=== PATIENT | male | born 1970 | race African-American/Black ===

== ENCOUNTER 2018-07-12 08:46 | Emergency (ER) | payer OTHER ==
[2018-07-12 09:02] VITALS: BP 128/85; PULSE 96; TEMP 98.5; BMI 32.1
--- NOTE | 2018-07-12 09:24 | PDOC ---
History of Present Illness - General Chief Complaint: Cold Symptoms Stated Complaint: COLD SYMPTOMS Time Seen by Provider: 07/12/18 09:00 History Source: Patient - History of Present Illness Timing/Duration: reports: other Past History - Past Medical History Allergies/Adverse Reactions: Allergies Allergy/AdvReac Type Severity Reaction Status Date / Time No Known Allergies Allergy Verified 07/12/18 08:50 Home Medications: Ambulatory Orders Metformin HCl [Glucophage] 500 mg PO BID #60 tablet 07/12/18 COPD: No - Immunization History Immunization Up to Date: Yes - Suicide/Smoking/Psychosocial Hx Smoking History: Never smoked Information on smoking cessation initiated: No Hx Alcohol Use: No Drug/Substance Use Hx: No Review of Systems - Review of Systems Constitutional: No: Chills, Fever HEENTM: No: Ear Pain, Throat Pain Respiratory: Yes: Cough. No: Shortness of Breath, Hemoptysis *Physical Exam - Vital Signs Last Vital Signs Temp Pulse Resp BP Pulse Ox 98.5 F 96 H 16 128/85 99 07/12/18 08:49 07/12/18 08:49 07/12/18 08:49 07/12/18 08:49 07/12/18 08:49 - Physical Exam General Appearance: Yes: Appropriately Dressed. No: Apparent Distress HEENT: positive: Normal ENT Inspection, Normal Voice. negative: Scleral Icterus (R), Scleral Icterus (L) Neck: positive: Supple. negative: Lymphadenopathy (R), Lymphadenopathy (L) Respiratory/Chest: positive: Lungs Clear, Normal Breath Sounds. negative: Respiratory Distress Cardiovascular: positive: Regular Rate, S1, S2 Integumentary: positive: Dry, Warm Neurologic: positive: Fully Oriented, Alert, Normal Mood/Affect Medical Decision Making - Medical Decision Making 07/12/18 09:21 47-year-old male, history of NIDDM, here with non-productive cough with pleuritic chest pain, nasal congestion with body aches 3 days. Denies shortness of breath, hemoptysis, fever, chills, sore throat, ear pain, or rash. No known sick contacts or recent travel. Patient also requesting refill of his metformin. Insurance recently reactivated and planning on seeing his PMD in the near future See exam Viral URI Exam unremarkable -dc w/ supportive tx *DC/Admit/Observation/Transfer Diagnosis at time of Disposition: URI (upper respiratory infection) Qualifiers: URI type: unspecified viral URI Qualified Code(s): J06.9 - Acute upper respiratory infection, unspecified - Discharge Dispostion Disposition: HOME Condition at time of disposition: Good - Prescriptions Prescriptions: Metformin HCl [Glucophage] 500 mg PO BID #60 tablet - Referrals - Patient Instructions Printed Discharge Instructions: DI for Viral Upper Respiratory Infection -- Adult Additional Instructions: Resume your metformin and please follow-up with your PMD - Post Discharge Activity Forms/Work/School Notes: Back to Work
--- NOTE | 2018-07-14 15:05 | EKG ---
Test Reason : Blood Pressure : / mmHG Vent. Rate : 089 BPM Atrial Rate : 089 BPM P-R Int : 154 ms QRS Dur : 084 ms QT Int : 352 ms P-R-T Axes : 060 039 022 degrees QTc Int : 428 ms NORMAL SINUS RHYTHM NONSPECIFIC T WAVE ABNORMALITY ABNORMAL ECG NO PREVIOUS ECGS AVAILABLE Confirmed by JERILYN BALTAZAR MD ([id number]) on 07/14/2018 3:05:47 PM Referred By: Confirmed By:JERILYN BALTAZAR MD
== END 2018-07-12 09:39 | disposition home or self-care (01) ==
LOC: JER 08:46 → JERFT 08:46
DX: J06.9 Acute upper respiratory infection, unspecified (principal); B97.89 Other viral agents as the cause of diseases classified elsewhere; E11.9 Type 2 diabetes mellitus without complications; Z79.84 Long term (current) use of oral hypoglycemic drugs
CPT/HCPCS: 93005; 93010; 99281-25

== ENCOUNTER 2018-10-05 09:56 | Emergency (ER) | payer OTHER ==
[2018-10-05 10:03] VITALS: BP 116/73; PULSE 89; TEMP 98.2; BMI 36.5
--- NOTE | 2018-10-05 11:00 | PDOC ---
History of Present Illness - General Chief Complaint: Rash Stated Complaint: LT. FOOT PAIN Time Seen by Provider: 10/05/18 10:37 History Source: Patient Exam Limitations: No Limitations - History of Present Illness Initial Comments: 10/05/18 10:54 48 yo M w/ a PMHx DM comes in c/o L foot itching for the past 1-2 months. Also c /o occasional numbness in his feet. Pt admits to non compliance with his metformin, he does not take it everyday because it gives him diarrhea. No other complaints today. He does not have a PMD, says that he needs one. He denies polyuria, polydipsia, no fever/chills, no abdominal pain, no chest pain, no SOB, no urinary complaints. Denies change in appetite, no recent travel. Past History - Past Medical History Allergies/Adverse Reactions: Allergies Allergy/AdvReac Type Severity Reaction Status Date / Time No Known Allergies Allergy Verified 10/05/18 09:59 Home Medications: Ambulatory Orders Metformin HCl [Glucophage] 500 mg PO BID #60 tablet 07/12/18 Clotrimazole [Clotrimazole AF] 28 gm TP BID 14 Days #1 cream..g. 10/05/18 COPD: No Diabetes: Yes - Surgical History Abdominal Surgery: Yes - Immunization History Immunization Up to Date: Yes - Suicide/Smoking/Psychosocial Hx Smoking History: Never smoked Hx Alcohol Use: No Drug/Substance Use Hx: No Review of Systems - Review of Systems Able to Perform ROS?: Yes Constitutional: No: Chills, Fever, Malaise, Night Sweats HEENTM: No: Eye Pain, Recent change in vision, Throat Pain Respiratory: No: Cough, Shortness of Breath Cardiac (ROS): No: Chest Pain, Palpitations, Chest Tightness ABD/GI: No: Diarrhea, Nausea, Vomiting, Abdominal cramping : No: Dysuria, Hematuria Musculoskeletal: No: Back Pain Integumentary: Yes: Rash Neurological: No: Headache, Numbness, Dizziness Psychiatric: No: Change in Appetite Endocrine: No: Unexplained Weight Loss *Physical Exam - Vital Signs Last Vital Signs Temp Pulse Resp BP Pulse Ox 98.2 F 89 18 116/73 99 10/05/18 10:10/05/18 10:10/05/18 10:10/05/18 10:01 10/05/18 10:01 - Physical Exam General Appearance: Yes: Nourished. No: Apparent Distress HEENT: positive: LV, Normal ENT Inspection, Normal Voice. negative: Pale Conjunctivae, Scleral Icterus (R), Scleral Icterus (L) Neck: positive: Supple. negative: Decreased range of motion, Tender midline Respiratory/Chest: positive: Lungs Clear, Normal Breath Sounds. negative: Respiratory Distress, Accessory Muscle Use Cardiovascular: positive: Regular Rhythm, Regular Rate Extremity: positive: Normal Capillary Refill, Normal Range of Motion, Other ((+) areas of hyperpigmented patches to L foot and interdigital webspaces c/w athlete 's foot, (+)diffuse calluses). negative: Tender, Coldness, Pedal Edema, Swelling Integumentary: positive: Normal Color, Dry, Rash (As described in "extremity" exam.). negative: Jaundice Neurologic: positive: Fully Oriented, Alert, Normal Mood/Affect Medical Decision Making - Medical Decision Making 10/05/18 10:59 48 yo M w/ uncontrolled DM, comes in c/o athlete's foot and calluses. He also c/ o occasional feet numbness which could be from diabetic neuropathy due to uncontrolled DM. Pt just had breakfast, unnecessary to check FS since pt denies any polyuria/polydipsia/polyphagia, denies fever/chills, no abdominal pain, no change in appetite, no systemic symptoms at this time. WIll discharge with a referral to the hotel yardperson and a PMD, will Rx clotrimazole. Pt counseled on imperative need to follow up and change lifestyle and diet Return for worsening/concerning symptoms Pt verbalizes understanding and agrees with plan 10/05/18 11:17 *DC/Admit/Observation/Transfer Diagnosis at time of Disposition: Athlete's foot on left, Callus of foot - Discharge Dispostion Disposition: HOME Condition at time of disposition: Stable - Prescriptions Prescriptions: Clotrimazole [Clotrimazole AF] 28 gm TP BID 14 Days #1 cream..g. - Referrals Referrals: Nayeli Seals DPM [Staff Physician] - Paul Martinez MD [Staff Physician] - - Patient Instructions Printed Discharge Instructions: How to Take Care of Your Feet If You Have Diabetes, Diabetic Neuropathy, DI for Calluses and Corns, DI for Athlete's Foot - Post Discharge Activity Forms/Work/School Notes: Back to Work
== END 2018-10-05 11:16 | disposition home or self-care (01) ==
LOC: JERFT 09:56
DX: B35.3 Tinea pedis (principal); L84 Corns and callosities; E11.65 Type 2 diabetes mellitus with hyperglycemia; Z79.84 Long term (current) use of oral hypoglycemic drugs; Z91.14 Patient's other noncompliance with medication regimen
CPT/HCPCS: 99281-25

== ENCOUNTER 2023-09-07 20:22 | Emergency (ER) | payer OTHER ==
[2023-09-07 20:28] VITALS: BMI 30.4
[2023-09-07] MEDS ORDERED: ALBUTEROL SO4 2.5/IPRATROPIUM 0.5 INH SOL 3 ML VIAL.NEB. NEB ONE (21:32)
[2023-09-07] MEDS ORDERED: ACETAMINOPHEN 500 MG TABLET (FP) ONE (21:32)
[2023-09-07] MEDS: ACETAMINOPHEN 500 MG TABLET (FP) PO ONE (22:02)
[2023-09-07] MEDS: ALBUTEROL SO4 2.5/IPRATROPIUM 0.5 INH SOL 3 ML VIAL.NEB. NEB ONE (22:03)
[2023-09-07] MEDS: SODIUM CHLORIDE 1,000 ML IV STA (22:26)
[2023-09-07 22:30] LABS: BASO % 0.8 % (0-2.0); EOS % 0.7 % (0-4.5); HEMATOCRIT 40.1 % (35.4-49); HEMOGLOBIN 13.6 GM/dL (11.7-16.9); LYMPH % 23.4 % (8-40); MCH 25.8 pg (25.7-33.7); MCHC 33.8 g/dl (32.0-35.9); MEAN CELL VOLUME 76.3 fl (80-96); MEAN PLT VOLUME 8.5 fl (7.5-11.1); MONO % 11.9 % (3.8-10.2); NEUT % 63.2 % (42.8-82.8); PLATELET COUNT 254 10^3/uL (134-434); RBC 5.25 M/mm3 (4.00-5.60); RDW 15.8 % (11.9-15.9); WHITE BLOOD COUNT 10.7 K/mm3 (4.0-10.0)
[2023-09-07 22:56] LABS: POTASSIUM 3.5 mmol/L (3.5-5.1)
[2023-09-07 22:58] LABS: BLOOD UREA NITROGEN 12.1 mg/dL (7-18); CALCIUM 8.7 mg/dL (8.5-10.1)
[2023-09-07 22:59] LABS: ALBUMIN 3.7 g/dl (3.4-5.0)
[2023-09-07 23:02] LABS: CREATININE 1.2 mg/dL (0.55-1.3)
[2023-09-07 23:03] LABS: BILIRUBIN,TOTAL 0.9 mg/dL (0.2-1); TOT PROT 7.2 g/dl (6.4-8.2)
[2023-09-07 23:47] VITALS: BP 129/77; PULSE 93; RESP 18; TEMP 98.2
== END 2023-09-07 23:53 | disposition home or self-care (01) ==
LOC: JER 20:22
PROC: 3E0337Z Introduction of Electrolytic and Water Balance Substance into Peripheral Vein, Percutaneous Approach (ICD-10-PCS; principal; 2023-09-07)
PROC: 3E0F7GC Introduction of Other Therapeutic Substance into Respiratory Tract, Via Natural or Artificial Opening (ICD-10-PCS; 2023-09-07)
DX: R05.9 Cough, unspecified (principal); R09.81 Nasal congestion; R50.9 Fever, unspecified; J40 Bronchitis, not specified as acute or chronic; J06.9 Acute upper respiratory infection, unspecified; Z20.822 Contact with and (suspected) exposure to COVID-19
CPT/HCPCS: 0241U-QW; 36415; 71046-TC-FY; 80053; 82962; 85025; 99284-25